=== PATIENT | male | born 1990 | race Caucasian/White ===

== ENCOUNTER → 2016-11-08 | Outpatient (REF) | payer OTHER | LOC: M LAB REF 09:17 | PROVIDERS: ATTEND Internal Medicine Gastroenterology | DX: R93.3 Abnormal findings on diagnostic imaging of other parts of digestive tract (principal); R10.30 Lower abdominal pain, unspecified; K59.1 Functional diarrhea ==

== ENCOUNTER → 2016-11-12 | Outpatient (CLI) | payer OTHER ==
[2016-11-15 00:11] LABS: ANTI-SACCHAROMYCES CEREV. IgA <20.0 Units (0.0-24.9); ANTI-SACCHAROMYCES CEREV. IgG <20.0 Units (0.0-24.9)
== END ==
LOC: M LAB 08:13
PROVIDERS: ATTEND Internal Medicine Gastroenterology
DX: R93.3 Abnormal findings on diagnostic imaging of other parts of digestive tract (principal); R10.30 Lower abdominal pain, unspecified; K59.1 Functional diarrhea

== ENCOUNTER 2017-02-10 06:38 | Emergency (ER) | payer OTHER ==
[~2017-02-10] VITALS: Ht 172.7 cm; Wt 77.0 kg
[2017-02-10] MEDS ORDERED: NS 1,000 ML IV ONE (07:15)
[2017-02-10 08:02] LABS: BASO % 0.5 % (0.0-1.0); EOS % 0.7 % (0.0-3.0); IMMATURE GRANULOCYTE % 0.2 % (0-0); LYMPH # 1.6 10^3/uL (1.5-6.5); LYMPH % 27.8 % (24.0-44.0); MEAN CORPUSCULAR HEMOGLOBIN 29.7 pg (27.0-33.0); MEAN CORPUSCULAR HGB CONC 34.5 g/dl (32.0-36.5); MONO # 0.4 10^3/uL (0.0-0.8); MONO % 6.6 % (0.0-5.0); NEUTROPHILS # 3.7 10^3/uL (1.8-7.7); NEUTROPHILS % 64.2 % (36.0-66.0); PLATELET COUNT, AUTOMATED 306 10^3/uL (150-450); RED CELL DISTRIBUTION WIDTH 12.1 % (11.5-14.5); WHITE BLOOD COUNT 5.8 10^3/uL (4.0-10.0)
[2017-02-10 08:30] LABS: ALBUMIN 4.1 GM/DL (3.2-5.2); ALBUMIN/GLOBULIN RATIO 1.46 (1.00-1.93); ALKALINE PHOSPHATASE 48 U/L (45-117); ALT/SGPT 40 U/L (12-78); AMYLASE 111 U/L (25-115); ANION GAP 9 MEQ/L (8-16); AST/SGOT 20 U/L (15-37); BILIRUBIN,DIRECT 0.1 MG/DL (0.0-0.2); BILIRUBIN,TOTAL 0.5 MG/DL (0.2-1.0); BLOOD UREA NITROGEN 15 MG/DL (7-18); CALCIUM LEVEL 8.9 MG/DL (8.5-10.1); CARBON DIOXIDE LEVEL 26 MEQ/L (21-32); CHLORIDE LEVEL 105 MEQ/L (98-107); CREATININE FOR GFR 1.04 MG/DL (0.70-1.30); GLOMERULAR FILTRATION RATE > 60.0 (>60); GLUCOSE, FASTING 100 MG/DL (70-105); POTASSIUM SERUM 3.9 MEQ/L (3.5-5.1); SODIUM LEVEL 140 MEQ/L (136-145); TOTAL PROTEIN 6.9 GM/DL (6.4-8.2)
[2017-02-10 08:46] VITALS: BP 106/55
== END 2017-02-10 09:00 | disposition home or self-care (01) ==
LOC: M ED 06:38
DX: R10.31 Right lower quadrant pain (principal); R10.32 Left lower quadrant pain; R11.10 Vomiting, unspecified; R19.7 Diarrhea, unspecified

== ENCOUNTER 2017-05-09 08:19 | Emergency (ER) | payer OTHER ==
[2017-05-09] MEDS: NS 1,000 ML IV (08:45)
[2017-05-09] MEDS: ONDANSETRON 4MG/2ML VIAL (J2405) IV (08:45)
[2017-05-09 09:06] LABS: BASO % 0.4 % (0.0-1.0); EOS % 0.4 % (0.0-3.0); HEMATOCRIT 43.2 % (42.0-52.0); IMMATURE GRANULOCYTE % 0.1 % (0-0); LYMPH # 1.7 10^3/uL (1.5-6.5); LYMPH % 24.2 % (24.0-44.0); MEAN CORPUSCULAR HEMOGLOBIN 29.5 pg (27.0-33.0); MEAN CORPUSCULAR HGB CONC 34.7 g/dl (32.0-36.5); MONO # 0.3 10^3/uL (0.0-0.8); MONO % 4.9 % (0.0-5.0); NEUTROPHILS # 4.8 10^3/uL (1.8-7.7); PLATELET COUNT, AUTOMATED 338 10^3/uL (150-450); RED BLOOD COUNT 5.08 10^6/uL (4.30-6.10); RED CELL DISTRIBUTION WIDTH 11.7 % (11.5-14.5); WHITE BLOOD COUNT 6.9 10^3/uL (4.0-10.0)
[2017-05-09 09:32] LABS: ALBUMIN/GLOBULIN RATIO 1.33 (1.00-1.93); ALKALINE PHOSPHATASE 42 U/L (45-117); ALT/SGPT 40 U/L (12-78); AMYLASE 82 U/L (25-115); ANION GAP 7 MEQ/L (8-16); AST/SGOT 25 U/L (7-37); BILIRUBIN,DIRECT 0.2 MG/DL (0.0-0.2); BILIRUBIN,TOTAL 0.7 MG/DL (0.2-1.0); BLOOD UREA NITROGEN 10 MG/DL (7-18); CALCIUM LEVEL 8.8 MG/DL (8.5-10.1); CARBON DIOXIDE LEVEL 26 MEQ/L (21-32); CHLORIDE LEVEL 108 MEQ/L (98-107); CREATININE FOR GFR 1.07 MG/DL (0.70-1.30); GLOMERULAR FILTRATION RATE > 60.0 (>60); GLUCOSE, FASTING 104 MG/DL (70-105); LIPASE 197 U/L (73-393); POTASSIUM SERUM 3.9 MEQ/L (3.5-5.1); SODIUM LEVEL 141 MEQ/L (136-145)
== END 2017-05-09 10:49 | disposition home or self-care (01) ==
LOC: M ED 08:19
DX: R11.2 Nausea with vomiting, unspecified (principal); R19.7 Diarrhea, unspecified
CPT/HCPCS: J2405

== ENCOUNTER 2017-05-11 13:45 | Emergency (ER) | payer OTHER ==
[2017-05-11] MEDS: ONDANSETRON 4 MG ORAL DISINTEGRATING TAB (S0181) PO (15:30)
[2017-05-11] MEDS: DICYCLOMINE 10 MG CAP PO (15:30)
== END 2017-05-11 15:34 | disposition home or self-care (01) ==
LOC: M ED 13:45
DX: R10.84 Generalized abdominal pain (principal); R11.2 Nausea with vomiting, unspecified; R19.7 Diarrhea, unspecified
CPT/HCPCS: 87804

== ENCOUNTER → 2017-05-11 | Outpatient (REF) | payer OTHER | LOC: M LAB REF 12:31 | DX: R19.7 Diarrhea, unspecified (principal) ==

== ENCOUNTER → 2017-07-19 | Outpatient (CLI) | payer OTHER | LOC: M WUC 15:09 | DX: S50.12XA Contusion of left forearm, initial encounter (principal); W18.30XA Fall on same level, unspecified, initial encounter; Y92.009 Unspecified place in unspecified non-institutional (private) residence as the place of occurrence of the external cause | CPT/HCPCS: 73090 ==

== ENCOUNTER → 2017-07-29 | Outpatient (CLI) | payer OTHER | LOC: M WUC 09:49 | DX: M79.632 Pain in left forearm (principal) | CPT/HCPCS: 73090 ==

== ENCOUNTER → 2017-08-21 | Outpatient (CLI) | payer OTHER ==
[2017-08-21 07:29] LABS: HEMATOCRIT 47.9 % (42.0-52.0); HEMOGLOBIN 16.4 g/dl (13.5-17.5); MEAN CORPUSCULAR HEMOGLOBIN 29.5 pg (27.0-33.0); MEAN CORPUSCULAR HGB CONC 34.2 g/dl (32.0-36.5); MEAN CORPUSCULAR VOLUME 86.3 fl (80.0-96.0); PLATELET COUNT, AUTOMATED 289 10^3/uL (150-450); RED BLOOD COUNT 5.55 10^6/uL (4.30-6.10); RED CELL DISTRIBUTION WIDTH 12.7 % (11.5-14.5); WHITE BLOOD COUNT 6.6 10^3/uL (4.0-10.0)
[2017-08-21 07:55] LABS: ALBUMIN 4.2 GM/DL (3.2-5.2); ALBUMIN/GLOBULIN RATIO 1.27 (1.00-1.93); ALKALINE PHOSPHATASE 66 U/L (45-117); ALT/SGPT 72 U/L (12-78); AST/SGOT 35 U/L (7-37); BILIRUBIN,DIRECT 0.2 MG/DL (0.0-0.2); BILIRUBIN,TOTAL 0.7 MG/DL (0.2-1.0); TOTAL PROTEIN 7.5 GM/DL (6.4-8.2)
== END ==
LOC: M LAB 06:50
DX: R19.7 Diarrhea, unspecified (principal)
CPT/HCPCS: 80076

== ENCOUNTER → 2021-03-31 | Outpatient (CLI) | payer OTHER ==
[~2021-03-31] MED LIST: AMOX875T; BENT20TA PO; CLEO300C2 PO; CYCL-707; IBUP80TA; LIDO2SOL9; LOPE2CAP; PRED20TA PO; ZOFR4TAB14; ZOFR4TAB14 PO
== END ==
LOC: M LABSMTC 11:03
PROVIDERS: ATTEND Family Medicine
DX: Z20.822 Contact with and (suspected) exposure to COVID-19 (principal)

== ENCOUNTER 2021-06-19 22:23 | Emergency (ER) | payer OTHER ==
[~2021-06-19] VITALS: Ht 170.2 cm; Wt 95.9 kg
[~2021-06-19 22:23] MED LIST changes: -AMOX875T; -CLEO300C2 PO; -IBUP80TA; -LIDO2SOL9; -PRED20TA PO
[2021-06-19] MEDS ORDERED: AMOX875T (22:39)
[2021-06-19] MEDS ORDERED: IBUP80TA (22:39)
[2021-06-19] MEDS ORDERED: LIDO2SOL9 (22:39)
[2021-06-19] MEDS ORDERED: methylPREDNISolone 125MG 2ML VIAL IV ONE (22:55)
[2021-06-19] MEDS ORDERED: FAMOTIDINE INJ 20MG/2ML VIAL (S0028 PER 1) IVP ONE (22:55)
[2021-06-19] MEDS ORDERED: CLEO300C2 PO (23:22)
[2021-06-19] MEDS ORDERED: PRED20TA PO (23:22)
[2021-06-20 00:30] VITALS: BP 138/65
== END 2021-06-20 00:43 | disposition home or self-care (01) ==
LOC: M ED 22:23
DX: R21 Rash and other nonspecific skin eruption (principal); T36.0X5A Adverse effect of penicillins, initial encounter; Z79.899 Other long term (current) drug therapy
CPT/HCPCS: 96374; 96375; 99284; J2930

== ENCOUNTER 2023-01-31 06:48 | Emergency (ER) | payer OTHER ==
[~2023-01-31] VITALS: Ht 170.2 cm; Wt 93.7 kg
[~2023-01-31 06:48] MED LIST changes: +AMOX875T; +CLEO300C2 PO; +IBUP80TA; +LIDO2SOBTL; +PRED20TA PO
[2023-01-31 06:50] VITALS: BP 124/86; TEMP 97.5; O2SAT 99
[2023-01-31] MEDS ORDERED: KETOROLAC 60MG 2ML VIAL IM ONE (10:55)
[2023-01-31] MEDS ORDERED: LIDOCAINE 5% (LIDODERM) PATCH TD ONE (10:55)
== END 2023-01-31 11:57 | disposition home or self-care (01) ==
LOC: M ED 06:48
DX: R07.89 Other chest pain (principal); F17.200 Nicotine dependence, unspecified, uncomplicated; Z88.0 Allergy status to penicillin
CPT/HCPCS: 71045; 71100; 96372; 99283; J1885

== ENCOUNTER → 2023-03-27 | Outpatient (CLI) | payer OTHER | LOC: M EKG 06:44 | PROVIDERS: ATTEND Registered Nurse Psychiatric/Mental Health | DX: F43.20 Adjustment disorder, unspecified (principal) ==